=== PATIENT | female | born 1955 | race Caucasian/White ===

== ENCOUNTER 2022-12-03 05:29 | Day surgery (SDC) | payer MEDICARE, OTHER ==
[2022-12-03] VITALS (9 sets, daily range): BP systolic 122–150; BP diastolic 70–90; PULSE 58–78; TEMP 97.7–98.2
[~2022-12-03] VITALS: Ht 160 cm; Wt 88.5 kg
[2022-12-03] MEDS ORDERED: LOPRESSOR 550 MG/TAB PO (06:33)
[2022-12-03] MEDS ORDERED: LEXAPRO 10MG10 MG PO (06:33)
[2022-12-03] MEDS ORDERED: CALTRATE-600 W600 MG PO (06:34)
[2022-12-03] MEDS ORDERED: VITAMIN D3400 I1 (06:36)
[2022-12-03] MEDS ORDERED: ONE-A-DAY WOMEN1 TAB (06:37)
[2022-12-03] MEDS ORDERED: PRESERVISION1 SGL PO (06:38)
[2022-12-03] MEDS ORDERED: ASPIRIN 81M81 MG/TA2 PO (06:39)
--- NOTE | 2022-12-03 06:47 | NUR ---
PATIENT AMBULATED TO BAY 7 WITH STEADY GAIT. ALERT AND ORIENTED X4. PATIENT STATED UNDERSTANDING OF PROCEDURE. CONSENTS SIGNED. ASSESSMENT COMPLETED. B/P ELEVATED UPON ADMISSION. ONCE PATIENT SETTLED IN COT B/P DOWN TO 147/85. UVALDO WHALEY NOTIFIED. WARM BLANKET PROVIDED. NO FURHTER NEEDS NOTED AT THIS TIME. CALL LIGHT IN REACH. SON AND DAUGHTER AT BEDSIDE.
--- NOTE | 2022-12-03 14:21 | NUR ---
0700: PATIENT AMBULATED TO BATHROOM WITH STEADY GAIT AND STANDBY ASSIST. RESTING IN COT AT THIS TIME. CALL LIGHT IN REACH. SUPPORTIVE FAMILY AT BEDSIDE. 0800: DR. VILLAREAL IN TO SPEAK WITH PATIENT AT THIS TIME. SUPPORTIVE FAMILY AT BEDSIDE. 0840: PATIENT AMBULATED TO BATHROOM WITH STEADY GAIT AND STANDBY ASSIST. IV SITE INFUSING LR. NO REDDNESS NOTED AT IV SITE. BACK IN COT AT THIS TIME. CALL LIGHT IN REACH. FAMILY AT BEDSIDE. 0922: OR NURSE IN TO SPEAK WITH PAITENT AT THIS TIME. 0950: LR INFUSING WITH OUT DIFFICULTIES. NO REDNESS NOTED AT IV SITE. PATIENT RESTING IN COT. CALL LIGHT IN REACH. FAMILY AT BEDSIDE. 1011: PATIENT AMBULATED TO BATHROOM WITH STEADY GAIT AND STANDY ASSIST. BACK IN COT AT THIS TIME. CALL LIGHT IN REACH. 1200: PATIENT AMBULATED TO BATHROOM WITH STEADY GAIT AND STANDY ASSIST. LR INFUSING WITHOUT DIFFICULTIES. NO REDNESS OR SWELLING NOTED AT IV SITE. PATIENT RESTING IN COT. CALL LIGHT IN REACH. FAMILY AT BEDSIDE. 1240: DR. VILLAREAL IN TO SPEAK WITH PATIENT. 1400: NURSE PRODUCTION MANUFACTURING WORKER IN TO SPEAK WITH PATIENT. 1412: PATIENT TO PACU FOR BLOCK AT THIS TIME.
[2022-12-03] MEDS ORDERED: VITAMIN D 400400 IU PO (19:19)
[2022-12-03] MEDS ORDERED: COMPLETE MULTI1 TAB PO (19:19)
--- NOTE | 2022-12-03 20:00 | NUR ---
PT ASSISTED TO BSC, VOIDS AND BACK TO BED. HAS IVF TO LT WRIST. BULKY DRSG TO RLE, HEMOVAC DRAIN COMPRESSED. IS ALERT AND ORIENTED X4.
--- NOTE | 2022-12-03 20:42 | NUR ---
HS MEDS GIVEN. IVF CAPPED, PT TAKING ORAL WELL. EDUCATED ON PRN PAIN MEDS. ICE PACK REPLACED.
--- NOTE | 2022-12-03 22:30 | NUR ---
PT REPORTS RT KNEE PAIN, OXYCODONE 5MG PO GIVEN.
--- NOTE | 2022-12-03 23:02 | NUR ---
PT REPORTS CONTINUED RT KNEE PAIN, 8, REPEATED OXYCODONE 5MG NOW.
[2022-12-04] VITALS (7 sets, daily range): BP systolic 117–136; BP diastolic 66–81; PULSE 56–59; TEMP 97.8–98
--- NOTE | 2022-12-04 02:29 | NUR ---
PT MEDICATED WITH SCHEDULED ES TYLENOL AND PRN OXYCODONE FOR RT KNEE PAIN. ASSISTED TO BATHROOM, GAIT STEADY. VOIDS, HAS SMALL AMOUNT OF EMESIS AND BACK TO BED. IV ANTIBIOTIC GIVEN.
--- NOTE | 2022-12-04 02:54 | NUR ---
HEMOVAC DRAINED FOR 130CC OF BLOODY DRAINAGE.
--- NOTE | 2022-12-04 06:35 | NUR ---
NO FURTHER EMESIS. RESTING WELL AFTER PAIN MEDS.
[2022-12-04 07:15] LABS: HEMATOCRIT 38.9 % (37.0-47.0); HEMOGLOBIN 12.7 g/dl (12.5-16.0)
[2022-12-04 07:35] LABS: CALCIUM 9.2 mg/dL (8.4-10.2); CREATININE, serum 0.81 mg/dL (0.57-1.11); POTASSIUM 4.6 mmol/L (3.5-4.5)
--- NOTE | 2022-12-04 08:00 | NUR ---
Pt. sitting up in bed. Pt. is A&OX3, assessment complete. INT to lt. hand patent. Hemovac noted to rt. knee, dressing to rt. knee CDI. Pt. reports pain at a 5 on pain scale with movement. Pt. denies further needs.
--- NOTE | 2022-12-04 09:59 | NUR ---
Several visit attempts; Nurse with patient today. Registered Land Surveyor left card informing patient that [facility] is available at our hospital along with what is available through [facility].
--- NOTE | 2022-12-04 10:02 | NUR ---
Assistant Community Director met with Patient at bedside to conduct Care Managment Assessment and discuss discharge planning. Patient lives alone in [place], [place] and is established with PCP Dr. Bach. PAtient is establiehsed with [facility] and [facility] for insurance. Patient requests discharge medications be sent to [facility] in [place], [place]. Patient denies the use of DME prior to admission. Patient is established with OP PT in [place], [place] when discharged. Patient is anticiptated to discharge home with family assist and OP PT today.
[2022-12-04] MEDS ORDERED: CEPHALEXIN500 M1 PO (12:36)
[2022-12-04] MEDS ORDERED: PERCOCET 325 MG1 TA2 PO (12:37)
[2022-12-04] MEDS ORDERED: CELEBREX 1100 MG/CAP PO (12:37)
--- NOTE | 2022-12-04 13:45 | NUR ---
MIKHAIL Zurita in to see pt. Hemovac removed. Orders for discharge. INT discontinued from lt. hand. Discharge paperwork reviewed and given to pt. and daughter. Pt. and daughter voice understanding. Pt. escorted out by COLETTE.
== END 2022-12-04 13:45 | disposition home or self-care (01) ==
LOC: SDCO 05:29 → SURG 17:15 → SDCO 12-04 13:45
PROVIDERS: Physician Assistant
DX: M17.11 Unilateral primary osteoarthritis, right knee (principal); I10 Essential (primary) hypertension; F32.A Depression, unspecified; R73.03 Prediabetes; Z79.899 Other long term (current) drug therapy; Z87.891 Personal history of nicotine dependence
CPT/HCPCS: OP; A9284; C1713; C1776; J0690; J1100; J1580; J1800; J1885; J2250; J2270; J2704; J2795; J3010; J7120